=== PATIENT | male | born 1995 | race Caucasian/White ===

== ENCOUNTER 2023-07-26 18:16 | Outpatient (CLI) | payer BC, MEDICAID, SELFPAY ==
--- NOTE | 2023-07-26 18:31 | XRR_ITS ---
PROCEDURE INFORMATION: Exam: XR Left Humerus Exam date and time: 07/26/2023 6:34 PM Age: 27 years old Clinical indication: Injury or trauma; Fall; Sprain or strain; Humerus; Left TECHNIQUE: Imaging protocol: Radiologic exam of the left humerus. Views: 2 or more views. COMPARISON: No relevant prior studies available. FINDINGS: Bones/joints: Normal. Soft tissues: Unremarkable. XR/[place] [id number] IMPRESSION: No acute findings.
--- NOTE | 2023-07-26 18:31 | XRR_ITS ---
PROCEDURE INFORMATION: Exam: XR Left Elbow Exam date and time: 07/26/2023 6:34 PM Age: 27 years old Clinical indication: Injury or trauma; Fall; Sprain or strain; Elbow; Left TECHNIQUE: Imaging protocol: Radiologic exam of the left elbow. Views: 3 or more views. COMPARISON: No relevant prior studies available. FINDINGS: Bones/joints: Normal. Soft tissues: Unremarkable. XR/XR elbow LT min 3V* [id number] IMPRESSION: No acute findings.
== END 2023-07-26 18:17 | disposition home or self-care (01) ==
LOC: RAD CLINIC 18:19
PROVIDERS: Visit Provider Registered Nurse Neonatal Intensive Care
DX: S49.92XA Unspecified injury of left shoulder and upper arm, initial encounter (principal); S59.902A Unspecified injury of left elbow, initial encounter; W19.XXXA Unspecified fall, initial encounter
CPT/HCPCS: 73060; 73080